=== PATIENT | female | born 1995 | race Caucasian/White ===

== ENCOUNTER 2016-10-18 00:54 | Inpatient (IN) | payer SELFPAY ==
[~2016-10-18] VITALS: Ht 165.1 cm; Wt 62.0 kg
--- NOTE | 2016-10-18 20:07 | ER ---
ADMIT: 10/18/2016 RM/LOC: 311 [facility] MR#: [id number] [address] [facility] [address] [place], [place] [address] NEVA PLUNKETT [facility] [address] [place] [address] Emergency Room Report SEX: F AGE: 21 : 1995 DATE: 10/18/2016 CHIEF COMPLAINT: Seizure. HISTORY OF PRESENT ILLNESS: The patient is a 21-year-old female from [place] transferred by ambulance from [place] [facility] after being evaluated by Dr. Irvin for status epilepticus. The patient was at work, collapsed, had witnessed seizure, 911 was called, and transported to [place] [facility] where she had a CT head and neck which were negative. Alcohol, drug screen and serum HCG, all of which were negative. She was given a total of 6 mg Ativan, 10 mg of Valium, 1500 mg of Dilantin, 3 g of Keppra. The patient had a total of 4 seizures in [place], none en route. Last seizure was 18 months ago when she was . Last alcohol was over 3 months ago. No illicit drugs or head trauma. PAST MEDICAL HISTORY: Illnesses: Seizure disorder. ALLERGIES: TO LATEX AND PENICILLIN. MEDICATIONS: None. OPERATIONS: . SOCIAL HISTORY: Single, employed, smokes 1/2 pack per day. No illicit drugs or alcohol abuse. FAMILY HISTORY: Positive for bipolar in father. REVIEW OF SYSTEMS: Unavailable due to delirium. PHYSICAL EXAMINATION: VITAL SIGNS: Temp 97.2 pulse 113, respirations 20, BP 109/86, SaO2 of 97% on room air. Weight 81 kg. GENERAL: Nontoxic, non-diaphoretic, without jaundice or icterus. HEENT: No evidence of buccal or lingual injury. No evidence of trauma, epistaxis, rhinorrhea, or otorrhea. NECK: Supple without lymphadenopathy or meningismus. CHEST: Clear. Breath sounds equal. HEART: Tachycardic, regular without murmur, gallop, or edema. ABDOMEN: Soft, nontender, and nondistended without mass or megaly. Bowel sounds hypoactive. BACK: Erect. No CVA tenderness. EXTREMITIES: No evidence of injury, synovitis, or Homans sign. NEURO: EOMI. PERRLA. Moves all extremities and withdraws appropriately to noxious stimuli. MENTAL STATUS: Slurred speech and clouded sensorium. No hallucinations or abnormal thought content. Denies suicidal or homicidal ideation or paranoia. MEDICAL DECISION MAKING: The patient had brief 20-second tonic activity with no buccal injury or incontinence, immediately went back to her baseline, ADMIT: 10/18/2016 RM/LOC: 311 [facility] MR#: [id number] [address] [facility] [address] [place], [place] [address] [facility] [address] [place] [address] Emergency Room Report SEX: F AGE: 21 : 1995 confused state. Repeat lab work shows normal lactic and bicarb as well as anion gap. Tox screen pending. The patient given a banana bag here in the Emergency Department, discussed case with Dr. Cool who will consult but requests ICU admission. Notified Dr. Jarquin who agreed and gave orders to nursing staff. Due to the patient's presentation, findings, and intervention, 30 minutes of critical care is warranted. DIAGNOSIS: Status epilepticus. RECOMMENDATION: Admit to inpatient ICU for Dr. Jarquin and Dr. Cool. ADMISSION AND DISCHARGE CONDITION: Stable. The patient is a full code. Ha Yi MD/ juan j JOB #: [id number] CC: Tommie Jarquin MD, Attending Physician Tommie Jarquin MD, Family Physician MD Zaid Hong MD Jiri Brabec, MD
--- NOTE | 2016-10-19 09:07 | HP ---
ADMIT: 10/18/2016 RM/LOC: 311 [facility] MR#: [id number] [address] [facility] [place], [place] [address] ESTUARDO PLUNKETT [address] [place] [address] History and Physical SEX: F AGE: 21 : 1995 DATE OF SERVICE: CHIEF COMPLAINT: Seizure disorder. HISTORY OF PRESENT ILLNESS: Estuardo is a 21-year-old female, who was transferred from [place], [place] to be admitted to [place] under the care of Dr. Cool for uncontrolled seizures. She was bypassed through [facility] due to [facility] being full and not have any beds available. 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 where she had another seizure. She was given Ativan 6 mg IV, Valium 10 mg IV, and 1100 mg of Dilantin IV. She was then transferred by ambulance to [facility]. In [facility] emergency room, she had another seizure and was given another 500 mg of Dilantin IV and 3 g of Keppra IV. After she arrived to ICU floor, she had a witnessed 20-second seizure. According to ICU nurses, she yelled out it hurts, it hurts, it hurts and then had her 20-second seizure. The seizure consisted of clenched fist, arching of her back, and shaking. There is no tonic-clonic activity. At that time, she had a Callahan catheter in and is not able to determine if she would be incontinent. She has not had any mouth injuries that could be ascertained. At the time of my examination at 5:15 a.m., she is quite lethargic. She is sleeping. She does arouse, but is not able to answer questions or make any sense, she just mumbles. History is obtained from nurses, who obtained their history from friend of the patient, who was here when she was admitted, but is not present at this time. According to the information obtained from the patient's friend by nursing personnel, she had her first seizure while she was 2 years ago. She has had very few seizures since then, but is not on any medication for seizures. She has complicated social history. She is from [place]. Her family is in [place]. She is , has 3 children, but has lost custody of the children, and they are in the custody at this time of her [id number]. She has a protection order against her , and they are estranged at this time. She currently is on probation for alcohol-related issues. PAST MEDICAL HISTORY: ALLERGIES: None known, although the patient not able to give any history. MEDICATIONS: None. PREVIOUS HOSPITALIZATIONS: She has been hospitalized x3 for childbirth, 1 vaginal delivery, 2 section. No other health problems, illnesses, or hospitalizations that we know of, although again the patient is not able to give any history. SOCIAL HISTORY: As outlined above, she does smoke a half pack of cigarette ADMIT: 10/18/2016 RM/LOC: 311 [facility] MR#: [id number] [address] [facility] [address] [place], [place] [address] [facility] [address] [place] [id number] History and Physical SEX: F AGE: 21 : 1995 per day. She is currently not drinking any alcohol. She is on probation for alcohol-related offenses. It is mentioned she is with 3 children, but she and her are estranged, and she has a protection order against him. She has lost custody at this time of her 3 children, and her 's father has the children. FAMILY HISTORY: Not able to obtain. REVIEW OF SYSTEMS: Not able to obtain. PHYSICAL EXAMINATION: GENERAL: A 21-year-old female, sleeping in the position. She does arouse with gentle physical stimulation; however, she is not able to give any history. VITAL SIGNS: Have been stable. Blood pressure approximately 100/50, pulse is 70 and regular, respiratory rate 22, temp 98.2, and O2 saturation 95% on room air. HEENT: Pupils at this time appeared to be small, difficult to tell if they are reactive. Extraocular muscles not able to assess. Mouth, the patient will not open her mouth to be examined. Tympanic membranes not visualized. NECK: Appears to be supple. LUNGS: Clear to auscultation anteriorly. HEART: Regular rate. No murmur. BREASTS: Not examined. ABDOMEN: Feels to be soft, did not detect any masses, but again exam is difficult due to her being in position. EXTREMITIES: Negative other than slight bruising on right elbow and some plaque formation on left elbow. She does move all 4 extremities. Does not appear to have any focal neurological signs. LABORATORY DATA: Her drug screen in the emergency room was negative for everything except benzodiazepines, which she had been given in [place]. Her blood alcohol level was negative. Urine test was negative. Chemistry panel; creatinine was 0.8, glucose 107. Liver enzymes were normal. ADMIT: 10/18/2016 RM/LOC: 311 [facility] MR#: [id number] [address] [facility] [address] [place] [phone] [facility] [address] [place] [address] History and Physical SEX: F AGE: 21 : 1995 Acetaminophen level was not detectable. T4 and TSH were normal. Salicylate level was 2.8. CBC; white count 10.9, hemoglobin 13.7. Lactic acid was 1.1. DIAGNOSTIC IMPRESSION: 1. History of seizure disorder with ongoing seizure. 2. On probation for alcohol-related offenses. 3. Decreased level of consciousness at the current time secondary to medications. PLAN: The patient admitted to ICU. She is on seizure precautions and IV fluids. I will keep her n.p.o. until she is more awake and alert, and Dr. Cool will administer antiepileptic medications. Tommie Jarquin MD/ juan j JOB #: [id number] CC: Tommie Jarquin, Attending Physician Tommie Jarquin, Family Physician
--- NOTE | 2016-10-20 10:17 | NUR ---
Received SAD person referral from ED. Pt is a SAD person as she is on probation for alcohol related issues. Pt will be followed by the in-patient social services counselor for any dc needs.
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
--- NOTE | 2016-10-31 07:48 | DS ---
ADMIT: 10/18/2016 RM/LOC: 311 [facility] MR#: [id number] [address] [address] NEVA PLUNKETT [address] [place] [address] General Discharge Summary SEX: F AGE: 21 : 1995 ADMISSION DATE: 10/18/2016 DISCHARGE DATE: 10/20/2016 ADMITTING DIAGNOSIS: Seizure. DISMISSAL DIAGNOSIS: Seizure. COMPLICATING DIAGNOSES: Bipolar, depression, history of personality disorder, history of alcohol dependency, in remission. The patient left against medical advice. SURFACE SHIP USW SUPERVISOR: Clint Cool MD. CHIEF COMPLAINT AND HISTORY OF PRESENT ILLNESS: A 21-year-old female, transferred from [place], [place], to be admitted to [facility] under the care of Dr. Cool for uncontrolled seizures. She was bypassed [facility] due to their facility being full and not having any beds available. Neva was apparently at work. 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 She was given Ativan 6 mg IV, Valium 10 mg IV, and 1100 mg of Dilantin IV. She was then transferred by ambulance to [facility]. In the [facility] emergency room, she had another seizure and was given another 500 mg of Dilantin IV and 3 g of Keppra IV. After she arrived in the ICU to the floor, she had a witnessed 20-second seizure. According to ICU nurse, she yelled out it hurts three times and then had a 20-second episode of clinched fist, arching her back, and shaking. There was no tonic- clonic activity. At that time, she did have a Callahan catheter in place, so was unable to be determined if she was incontinent of urine or not. She has not had any mouth injuries or bites in her buccal mucosa. At the time of my examination at 5:15 a.m., she was lethargic, sleeping, does arouse with gentle physical stimulation but is not able to answer questions or make any sense. She would mumble and roll over. History that I obtained was from the nurse. She obtained the history from a friend of the patient who was here when she was admitted but was not present at the time of my exam. For further details, refer to history and physical. LABORATORY REPORTS: Please see lab summary sheets. COURSE IN THE HOSPITAL: Neva was admitted to ICU. IV of D5LR at 75 mL/h, kept n.p.o., placed on seizure precautions. Dr. Cool assumed care of her seizure disorder. I did order CBC, CMP, and Dilantin level. She was low risk for DVT and no anticoagulant therapy was administered. Dr. Cool ordered a MRI of the brain with and without contrast along with Keppra 1500 mg b.i.d. either IV or p.o., Dilantin 100 mg IV every 8 hours, neuro checks every hour, and comprehensive serum drug screen. Psychiatry consult by Telemedicine was ADMIT: 10/18/2016 RM/LOC: 311 [facility] MR#: [id number] [address] [place] [phone] NEVA PLUNKETT [address] [address] General Discharge Summary SEX: F AGE: 21 : [address] Mac Gastelum evaluated her approximately a day and a half later when she was more alert. He did not feel she was any risk for suicide or harm to others as long as she did not drive a car. She wanted to leave the hospital to smoke and did sign out papers AMA. I asked that she be held for emergency protective custody unless she was cleared by Dr. Cool and Dr. Gastelum, which they did clear her for ability to leave AMA. Her [id number] picked her up at the hospital front door. She was informed that she should follow up with her primary physician in [place] with Dr. Cool within the next [address] Cool did feel that the seizures were pseudoseizures. EEG was ordered and results of that are pending. The MRI of the brain was negative. Tommie Jarquin MD/ juan j JOB #: [id number] CC: Tommie Jarquin MD, Attending Physician Tommie Jarquin MD, Family Physician
--- NOTE | 2016-11-18 10:17 | CO ---
ADMIT: 10/18/2016 RM/LOC: 311 [facility] MR#: [id number] [address] [facility] [address] [place], [place] [address] NEVA PLUNKETT [facility] [address] [place] [address] Consultation SEX: F AGE: 21 : 1995 DATE OF CONSULTATION: 10/18/2016 ATTENDING PHYSICIAN: Tommie Jarquin CONSULTING PHYSICIAN: Clint Cool MD REASON FOR CONSULTATION: Breakthrough seizures. HISTORY OF PRESENT ILLNESS: The patient is a 21-year-old woman who apparently was transferred from [place], [place] for higher level of care in regard to her uncontrolled seizures. The patient does have a seizure history reportedly for about 2 years started when she was . Seizures were infrequent. Unfortunately, we do not have any information what medication was she on an outpatient setting if any. The patient was at work, while she had what seemed to be as per description tonic clonic seizure. She was taken to emergency room in [place] where she continued to have on and off generalized tonic-clonic seizures lasting about 20 seconds. She was only partially improving in between. On my recommendation, she was loaded with 1500 mg of Dilantin and 3 g of Keppra prior to transfer to [facility]. To abort seizure at the [facility], she received Ativan and Valium. I believe it was 6 mg of Ativan and 10 mg of Valium. The last seizure that she had was at 1:30 a.m. Past medical history, review of systems, family history, and allergies are not possible to obtain from the patient secondary to her clinical situation. She is encephalopathic currently. MEDICATIONS: Reportedly none. SOCIAL HISTORY: She is a smoker and she used to drink alcohol and is on probation for alcohol-related offences. PHYSICAL EXAMINATION: VITAL SIGNS: Temperature 97.9, heart rate 98, respirations 20, blood pressure 100/68, and saturation on room air 99%. The patient is encephalopathic which is reducing the quality of the examination. HEAD: Normocephalic. NECK: Supple. CHEST: Normal respiratory raises. CARDIOVASCULAR: Regular rate and rhythm. ABDOMEN: Soft, nondistended. EXTREMITIES: No clubbing, no cyanosis. NEUROLOGICAL: The patient is somnolent, stuporous, arousable, and disarrayed. She is localizing with all 4 extremities to pain. She is nonverbal. Pupils are equal, reactive to light. Corneal reflexes are present. Reflexes are brisk, symmetric. No pathological reflexes observed. Coordination, unable to test. Gait, unable to test. LABS: Lactic acid normal. CBC fairly unremarkable except for white count ADMIT: 10/18/2016 RM/LOC: 311 [facility] MR#: [id number] [address] [facility] [address] [place] [phone] [facility] [address] [place] [address] Consultation SEX: F AGE: 21 : 1995 10.9. test is negative. Comprehensive metabolic panel, fairly normal. Calcium corrected to 8.2, magnesium 2.1. TSH and free T4 normal. Ethanol 7. UA is negative for UTI. Urine drug screen is positive for benzodiazepines which she was getting in the hospital. CT of the head, only as per report which was done in [place] was normal. ASSESSMENT: 1. Status epilepticus. 2. Encephalopathy secondary to #1. 3. Alcohol use positive alcohol level. PLAN: We will start maintenance Keppra 1500 mg twice daily and Dilantin 100 mg q.8 hours. We will check a Dilantin level now as well as inflammatory markers. I asked to obtain MRI if is possible secondary to clinical condition. Thank you very much for this interesting consultation. We will continue to follow along. Clint Cool MD/ juan j JOB #: [id number] CC: Tommie Jarquin, Attending Physician Tommie Jarquin, Family Physician
--- NOTE | 2016-11-18 10:27 | EEG ---
ADMIT: 10/18/2016 [place]: [facility] [place] [id number] [address] [id number] [address] [place] [address] Inpatient EEG SEX: F AGE: 21 : 1995 DATE: 10/20/2016 EEG NUMBER: [id number]. The patient is a 21-year-old woman with history of spells. This is a routine 21-channel digital EEG recording performed on a "semi- cooperative" patient, who was awake and drowsy in various portions of the study. The study is performed using the 10/20 international electrode placement system. During wakefulness, the background activity is fairly well organized consisting of regular and symmetrical medium amplitude, 8.5 to 9 Hz activity seen posteriorly, which attenuates with eye opening. In addition, moderate amount of low-amplitude fast activity is seen anteriorly. During periods of drowsiness, there is generalized attenuation of the posterior dominant rhythm with appearance of medium amplitude 6 to 7 Hz activity seen bilaterally. There were no focal slowing nor epileptiform discharges seen in this recording. Great portion of the study is degraded by muscle motion artifact and electrode pops as the patient was moving and for most part poorly complying with the instructions. Hyperventilation performed for 2 minutes failed to produce generalized slowing of the posterior dominant rhythm. Photic stimulation performed at 1 to 33 Hz frequency elicited bilateral occipital driving response. IMPRESSION: This is a normal awake and drowsy EEG recording. COMMENTS: Normal cardiac rhythm is noted throughout this recording. Clint Cool MD/ juan j JOB #: [id number] CC: Tommie Jarquin MD, Attending Physician Tommie Jarquin MD, Family Physician
== END 2016-10-20 18:35 | disposition left against medical advice (07) | DRG 101 ==
LOC: ER 00:54 → 3ICU 02:15
PROVIDERS: ADMIT Family Medicine
PROC: 4A10X4Z Monitoring of Central Nervous Electrical Activity, External Approach (ICD-10-PCS; principal; 2016-10-20)
DX: G40.901 Epilepsy, unspecified, not intractable, with status epilepticus (principal); F31.9 Bipolar disorder, unspecified; F17.210 Nicotine dependence, cigarettes, uncomplicated; F60.3 Borderline personality disorder; F10.21 Alcohol dependence, in remission; Z91.5 Personal history of self-harm

== ENCOUNTER 2016-10-20 19:51 | Emergency (ER) | payer SELFPAY ==
--- NOTE | 2016-10-21 05:48 | ER ---
ADMIT: 10/20/2016 RM/LOC: ER [facility] MR#: [id number] [address] [address] NEVA PLUNKETT [address] [place] [address] Emergency Room Report SEX: F AGE: 21 : 1995 DATE: 10/20/2016 The patient is a 21-year-old female with bipolar type 2 and borderline personality admitted by this physician after direct admit from [place] to Dr. Cool for possible seizures. The patient left AMA today to have a cigarette, returns to ED requesting to be readmitted. The patient has an extensive tele psych evaluation on chart that confirms diagnosis of bipolar type 2 and borderline personality. Exam remarkable for nontoxic, afebrile, hysterical female feigning seizures. CT head negative. Hemoglobin 11.9, CRP 1.27, magnesium 1.7, potassium 3.6, glucose 114. D-dimer 1.9. HCG negative. Alcohol 13. Salicylate 1.9. Acetaminophen 2.8. Free T4 of 1.05. TSH 1.11. Offered voluntary admission to [facility] or [facility] evaluation. The patient declined and left. Strongly recommend follow up [facility] for ongoing psychiatric care. Ha Yi MD/ juan j JOB #: [id number] CC: Ha Yi MD, Attending Physician Antwon Lincoln MD, Family Physician Tommie Jarquin MD
== END 2016-10-20 21:49 | disposition home or self-care (01) ==
LOC: ER 19:51
DX: F31.81 Bipolar II disorder (principal); F60.3 Borderline personality disorder; G40.909 Epilepsy, unspecified, not intractable, without status epilepticus; Z88.0 Allergy status to penicillin; Z91.040 Latex allergy status